=== PATIENT | male | born 1980 | race Caucasian/White ===

== ENCOUNTER 2017-12-25 22:36 | Emergency (ER) | payer SELFPAY ==
[2017-12-26] MEDS ORDERED: METHYLPREDNISOLONE INJ 125 MG/2 ML SDV IM ONE (00:17)
--- NOTE | 2017-12-26 00:24 | ER Document Report ---
HPI - HPI Patient complains to provider of: skin rash Pain Level: 3 Context: Patient is a 37 year old male that comes to the emergency department for chief complaint of rash over his arms and neck mainly, he states that he was working around a tree that had poison cristofer, he states he has had poison cristofer several times in the past, he states he cannot sleep, he tried multiple topical treatments but it only seems to be worsening and spreading now up his arms and more on his back. He denies any fevers or chills, swelling of the face, tongue , throat, difficulty breathing. He denies any other complaints. He denies any daily medications or medical history. Past Medical History - General Information source: Patient - Social History Smoking Status: Current Every Day Smoker Frequency of alcohol use: None Drug Abuse: None Lives with: Family Family History: Reviewed & Not Pertinent Patient has suicidal ideation: No Patient has homicidal ideation: No - Medical History Medical History: Negative Renal/ Medical History: Denies: Hx Peritoneal Dialysis Surgical Hx: Negative - Immunizations Immunizations up to date: Yes Hx Diphtheria, Pertussis, Tetanus Vaccination: Yes Vertical Provider Document - CONSTITUTIONAL General Appearance: WD/WN, No Apparent Distress - HEENT HEENT: Atraumatic, Normal ENT Exam - Clear airway, no swelling of the posterior pharynx, normal uvula, Normocephalic - NECK Neck: Normal Inspection - RESPIRATORY Respiratory: Breath Sounds Normal, No Respiratory Distress - CARDIOVASCULAR Cardiovascular: Regular Rate, Regular Rhythm - GI/ABDOMEN Gastrointestinal: Abdomen Soft, Abdomen Non-Tender - BACK Back: Normal Inspection - MUSCULOSKELETAL/EXTREMETIES Musculoskeletal/Extremeties: MAEW, FROM, Non-Tender - NEURO Level of Consciousness: Awake, Alert, Appropriate - DERM Integumentary: Rash - Scattered erythematous rash with some dry excoriated areas in some areas consistent with small vesicles over the forearms mainly over the flexor surface, also on the upper left back and neck area. No pustules , bleeding, induration, fluctuance, bulla Course - Re-evaluation Re-evalutation: Patient's history and examination are most consistent with poison cristofer. Low suspicion of secondary bacterial superinfection based on his appearance and the appearance of the rash. No evidence of anaphylaxis. Treating with extended steroid doses along with initial Solu-Medrol. Patient is very grateful for this. Discussed follow-up and return precautions. Patient states understanding and agreement. - Vital Signs Vital signs: Temp Pulse Resp BP Pulse Ox 97.6 F 82 18 119/87 H 98 12/25/17 23:12 12/25/17 23:12 12/25/17 23:12 12/25/17 23:12 12/25/17 23:12 Discharge - Discharge Clinical Impression: Poison cristofer dermatitis Condition: Stable Disposition: HOME, SELF-CARE Additional Instructions: Your examination is consistent with poison cristofer dermatitis. Try not to scratch, if you do scratch skin open clean area and apply topical antibiotic. Take prednisone as prescribed to completion. Antihistamines can help for itching such as cetirizine or Benadryl which can help you sleep. Follow-up with primary care. Return if you worsen including swelling of the face, difficulty breathing or swallowing, or any other concerning symptoms. Prescriptions: Prednisone 10 mg PO ASDIR PRN #74 tablet PRN Reason:
[2017-12-26 00:58] VITALS: BP 124/79
== END 2017-12-26 00:57 | disposition home or self-care (01) ==
LOC: ER 12-26 00:57
DX: L23.7 Allergic contact dermatitis due to plants, except food (principal); F17.200 Nicotine dependence, unspecified, uncomplicated
CPT/HCPCS: 99282; 96372; J2930